=== PATIENT | male | born 1995 | race Hispanic/Latino ===

== ENCOUNTER 2019-05-05 12:23 | Emergency (ER) | payer SELFPAY ==
[2019-05-05 13:42] LABS: #Lymphocytes 1.5 thou/uL (1.20-3.40); #Monocytes 0.4 thou/uL (0.11-0.59); #Neutrophils 12.9 thou/uL (1.40-6.50); %Basophils 0.3 % (0.0-1.0); %Eosinophils 0.3 % (0.0-10.0); %Lymphocytes 9.8 % (21.0-51.0); %Monocytes 2.9 % (0.0-10.0); %Neutrophils 86.7 % (42.0-75.0); Hemoglobin 16.1 g/dL (14.0-18.0); Mean Corpuscular HGB CONC 33.4 g/dL (32.0-36.0); Mean Corpuscular Volume 92.9 fL (78.0-98.0); Mean Platelet Volume 6.9 fL (7.4-10.4); Platelet Count 310 thou/uL (130-400); RBC Distribution Width 11.4 % (11.5-14.5); Red Blood Cell (RBC) Count 5.19 mill/uL (4.70-6.10); White Blood Cell (WBC) Count 14.8 thou/uL (4.8-10.8)
[2019-05-05 13:58] LABS: ALT (SGPT) 37 U/L (8-55); AST (SGOT) 28 U/L (5-34); Alkaline Phosphatase 71 U/L (40-110); Anion Gap 15 mmol/L (10-20); BUN (Urea Nitrogen) 14 mg/dL (8.9-20.6); Bilirubin, Total 0.3 mg/dL (0.2-1.2); Calc. Creatinine Clearance 0 mL/min (70-130); Calcium 9.6 mg/dL (7.8-10.44); Carbon Dioxide 30 mmol/L (22-29); Chloride 104 mmol/L (98-107); Estimated GFR-MDRD Greater than 90; Globulin 3.2 g/dL (2.4-3.5); Glucose 97 mg/dL (70-105); Potassium 3.7 mmol/L (3.5-5.1); Protein, Total 8.2 g/dL (6.0-8.3); Sodium 145 mmol/L (136-145)
--- NOTE | 2019-05-05 14:29 | RAD ---
PORTABLE CHEST 1 VIEW: Date: 05/05/19 Time: 1336 hours HISTORY: Chest pain. Hematemesis. FINDINGS: The cardiomediastinum is normal. The lungs are well expanded and clear. The bony thorax is normal. IMPRESSION: Normal exam. POS: [facility]
--- NOTE | 2019-05-10 14:20 | EKG ---
Test Reason : Blood Pressure : / mmHG Vent. Rate : 075 BPM Atrial Rate : 075 BPM P-R Int : 150 ms QRS Dur : 088 ms QT Int : 350 ms P-R-T Axes : 066 076 054 degrees QTc Int : 390 ms Normal sinus rhythm Possible Left atrial enlargement RSR' or QR pattern in V1 suggests right ventricular conduction delay Septal infarct , age undetermined Abnormal ECG Confirmed by NIKKI DE LEON DO ([id number]), pictures editor STACY GASCA ([id number]) on 05/10/2019 2:20:27 PM Referred By: Confirmed By:NIKKI DE LEON DO
== END 2019-05-05 15:02 | disposition home or self-care (01) ==
LOC: ERS 12:23
DX: K92.0 Hematemesis (principal)
CPT/HCPCS: 71045; 80053; 84484; 85025; 93005; 94760